=== PATIENT | female | born 1990 | race Caucasian/White ===

== ENCOUNTER 2020-08-09 09:09 | Emergency (ER) | payer OTHER ==
[~2020-08-09 09:09] MED LIST: AMOXICILLIN500 MG PO; BACTROBAN OINT22 GM EXT; IBUPROFEN600 MG PO
[2020-08-09] MEDS ORDERED: AMOXICILLIN500 MG PO (09:57)
[2020-08-09] MEDS ORDERED: IBUPROFEN600 MG PO (09:57)
== END 2020-08-09 10:46 | disposition home or self-care (01) ==
LOC: ER1 09:09
DX: H66.92 Otitis media, unspecified, left ear (principal); F17.200 Nicotine dependence, unspecified, uncomplicated
CPT/HCPCS: 99282

== ENCOUNTER 2021-04-16 18:29 | Emergency (ER) | payer OTHER | END 2021-04-16 18:55 | disposition left against medical advice (07) | LOC: ER1 18:29 | DX: Z53.21 Procedure and treatment not carried out due to patient leaving prior to being seen by health care provider (principal) ==